=== PATIENT | female | born 1950 | race Caucasian/White ===

== ENCOUNTER → 2018-09-06 | Outpatient (CLI) | payer MEDICARE ==
--- NOTE | 2018-09-19 14:53 | P.ARTDOP ---
Arterial Doppler LOWER EXTREMITY ARTERIAL DOPPLER: DATE OF SERVICE: 09/06/2018 Reason for study: Bilateral leg pain. Doppler waveforms: Multiphasic bilaterally throughout. Pulse volume recording: []. Pressure gradients: None. Ankle-brachial indices: Greater than 1 bilaterally. Toe pressures: [] on the right, [] on the left Impression: Normal study.
== END | disposition home or self-care (01) ==
LOC: RADUSWWP 10:15
PROVIDERS: ATTEND Physical Medicine & Rehabilitation
DX: M70.61 Trochanteric bursitis, right hip (principal); M70.62 Trochanteric bursitis, left hip; G24.3 Spasmodic torticollis; R20.2 Paresthesia of skin; M47.12 Other spondylosis with myelopathy, cervical region; M47.817 Spondylosis without myelopathy or radiculopathy, lumbosacral region; M51.17 Intervertebral disc disorders with radiculopathy, lumbosacral region; M54.5 Low back pain
CPT/HCPCS: 93922

== ENCOUNTER → 2020-08-12 | Outpatient (CLI) | payer MEDICARE ==
--- NOTE | 2020-08-13 09:48 | NM ---
EXAMINATION TYPE: NM DatScan Brain SPECT DATE OF EXAM: 08/12/2020 COMPARISON: NONE HISTORY: 70-year-old female G20, Parkinson's TECHNIQUE: 10 drops of Lugol's solution was administered 1 hour prior to injection as a thyroid bloc sanjeev agent. After the administration of 4.7 mCi I-123 Ioflupane DaTscan. Images obtained [address] injection. SPECT images of the brain were acquired with axial and coronal reconstructions. FINDINGS: There is normal background activity on SPECT images. Symmetric striatal activity is demonstrated. IMPRESSION: Normal striatal uptake is against a diagnosis of idiopathic Parkinson's disease or a Parkinsonian syn drome. It is seen in healthy individuals and also patients with essential tremor, drug-induced maria c sonism, and vascular pseudoparkinsonism.
== END | disposition home or self-care (01) ==
LOC: RADNMMAIN 10:54
PROVIDERS: ATTEND Psychiatry & Neurology Neurology
DX: G21.19 Other drug induced secondary parkinsonism (principal); G25.0 Essential tremor
CPT/HCPCS: 78803; A9584

== ENCOUNTER 2022-02-01 05:59 | Day surgery (SDC) | payer MEDICARE ==
[2022-01-28 11:40] VITALS: BMI 27.1
[2022-02-01 06:37] VITALS: TEMP 96.2
[2022-02-01] MEDS: LACTATED RINGERS 1,000 ML IV SCH ×2 (06:59→09:02)
[2022-02-01] MEDS ORDERED: PROPOFOL 10 MG/ML 20 ML VIAL IV ONE (07:07)
[2022-02-01] MEDS ORDERED: LIDOCAINE 2% INJ 20 MG/ML (2 ML VIAL) ONE (07:07)
--- NOTE | 2022-02-01 07:29 | P.PCN ---
Date of Procedure: 02/01/22 Procedure(s) Performed: Brief history: Patient is a pleasant 71-year-old white female scheduled for an elective upper endoscopy as well as colonoscopy as a part of evaluation of GERD, screening for colon cancer and prior history of colon polyps. Procedure performed: Esophagogastroduodenoscopy Colonoscopy Preoperative diagnosis: GERD/prior history of colon Anesthesia: MAC Procedure: After informed consent was obtained from the patient was brought into the endoscopy unit and IV sedation was administered by anesthesia under continuous monitoring. Initially upper endoscopy was done. The Olympus GF 160 video endoscope was inserted inserted into the mouth and esophagus intubated without any difficulty and was gradually advanced into the stomach and duodenum and carefully examined. The bulb and second part of the duodenum appeared normal. The scope was then withdrawn into the stomach adequately insufflated with air and upon careful examination the antrum and body, cardia and fundus appeared normal. The scope was then withdrawn into the esophagus. The GE junction was located at 40 cm to the incisors. It appeared regular with no erythema erosions or ulcerations. Rest of the esophagus appeared normal. Patient tolerated the procedure well. At this time the patient continued to remain sedation. Initial digital rectal examination was normal. Olympus CF 160 video colonoscope was then inserted into the rectum and gradually advanced to the cecum without any difficulty. Careful examination was performed as the scope was gradually being withdrawn. The prep was excellent. The cecum, ascending colon, transverse colon, descending colon, sigmoid colon and rectum appeared normal. Retroflexion was performed in the rectum and no lesions were noted. Patient tolerated the procedure well. Impression: 1. Upper endoscopy was within normal limits with no evidence of esophagitis or Caba's esophagus 2. Colonoscopy was within normal limits with no evidence of colorectal neoplasia Recommendations: Findings of this examination were discussed with the patient as well as her fam ady. She was advised to continue the current medications and follow antrum reflux measures. Recommend repeat colonoscopy in 10 years.
[2022-02-01] MEDS ORDERED: IV FLUID CONTINUATION 1,000 ML IV ONE (07:33)
[2022-02-01 07:50] VITALS: BP 137/63; PULSE 54; RESP 16
== END 2022-02-01 09:53 | disposition home or self-care (01) ==
LOC: ORWHC2ENDO 05:59
PROVIDERS: ATTEND Internal Medicine Gastroenterology
DX: Z12.11 Encounter for screening for malignant neoplasm of colon (principal); K21.9 Gastro-esophageal reflux disease without esophagitis; I10 Essential (primary) hypertension; M19.90 Unspecified osteoarthritis, unspecified site; E07.9 Disorder of thyroid, unspecified; Z79.890 Hormone replacement therapy; Z79.899 Other long term (current) drug therapy; Z80.0 Family history of malignant neoplasm of digestive organs
CPT/HCPCS: 43235; G0105; J2704; J2001; 45378